=== PATIENT | female | born 1985 | race Caucasian/White ===

== ENCOUNTER → 2021-03-26 | Outpatient (CLI) | payer BC ==
--- NOTE | 2021-03-26 12:01 | MM ---
Reason for exam: clinical finding. Physical Findings: Nurse did not find any significant physical abnormalities on exam. [facility] Diagnostic Mammo w CAD PARTH Bilateral CC and MLO view(s) were taken. The breast tissue is extremely dense which could obscure a lesion on mammography. These results were verbally communicated with the patient and result sheet given to the patient on 03/26/21. ASSESSMENT: Incomplete: need additional imaging evaluation, BI-RAD 0 RECOMMENDATION: Ultrasound of the left breast. (lump)
--- NOTE | 2021-03-26 12:03 | USB ---
Reason for exam: additional evaluation requested from abnormal screening. US Breast Limited LT Left limited breast ultrasound including focal area of concern, retroareolar and axilla demonstrates a 0.8 x 0.5 x 0.2cm oval, cystic lesion at 1 o'clock minimally complex with septation or adjacent, a 0.7 x 0.5 x 0.4cm oval, benign appearing lymph node at the axilla tail and a 1.2 x 1.0 x 0.5cm benign appearing lymph node at the axilla. These results were verbally communicated with the patient and result sheet given to the patient on 03/26/21. ASSESSMENT: Benign, BI-RAD 2 RECOMMENDATION: Routine screening mammogram of both breasts in 1 year. (3D)
== END | disposition home or self-care (01) ==
LOC: RADMAMWWP 06:55
PROVIDERS: ATTEND Internal Medicine
DX: N60.02 Solitary cyst of left breast (principal); R92.2 Inconclusive mammogram
CPT/HCPCS: 77066

== ENCOUNTER → 2024-02-08 | Outpatient (CLI) | payer OTHER ==
--- NOTE | 2024-02-08 11:00 | XR ---
EXAMINATION TYPE: XR thoracic spine complete DATE OF EXAM: 02/08/2024 COMPARISON: None HISTORY: Thoracic pain TECHNIQUE: Three-view thoracic spine FINDINGS: There are 12 thoracic type vertebral bodies. Pedicles are intact. Very subtle scoliosis may be present. This can be related to patient positioning or muscle spasm. Vertebral body heights are p reserved. Disc heights are preserved. Alignment is otherwise unremarkable. IMPRESSION: 1. No acute osseous abnormality thoracic spine. 2. Minimal scoliosis which can be positional or related to muscle spasm
--- NOTE | 2024-02-08 11:01 | XR ---
EXAMINATION TYPE: XR shoulder complete LT DATE OF EXAM: 02/08/2024 COMPARISON: NONE HISTORY: Pain TECHNIQUE: Left Shoulder examined in 3 projections. FINDINGS: The humeral head articulates with the glenoid. The acromio-clavicular junction is normal. No acute fractures or dislocations are evident. A follow up study can be performed 7-10 days from acute trauma for continued pain. MRI can be perfor med if soft tissue evaluation would be of benefit. IMPRESSION: 1. No acute osseous left shoulder abnormality.
--- NOTE | 2024-02-08 11:02 | XR ---
EXAMINATION TYPE: XR cervical spine comp DATE OF EXAM: 02/08/2024 COMPARISON: None HISTORY: Pain lifting injury TECHNIQUE: Five-view cervical spine FINDINGS: Alignment is preserved. Prevertebral space is normal. Disc heights are preserved. Vertebral body heights are preserved. Foramen are patent. Posterior spinal lamellar line is intact. There is s ome limitation due to overlying incisors at the tip of the odontoid. IMPRESSION: 1. No acute osseous abnormality cervical spine
== END | disposition home or self-care (01) ==
LOC: RADXRMAIN 09:57
PROVIDERS: ATTEND Emergency Medicine
DX: S46.912A Strain of unspecified muscle, fascia and tendon at shoulder and upper arm level, left arm, initial encounter (principal); M41.84 Other forms of scoliosis, thoracic region; R20.9 Unspecified disturbances of skin sensation; X58.XXXA Exposure to other specified factors, initial encounter
CPT/HCPCS: 72050; 72072

== ENCOUNTER → 2024-02-19 | Outpatient (CLI) | payer OTHER ==
--- NOTE | 2024-02-19 22:13 | MR ---
EXAMINATION TYPE: MR shoulder LT wo con DATE OF EXAM: 02/19/2024 COMPARISON: Left shoulder x-ray February 08, 2024 HISTORY: Left shoulder pain since 02-06-2024 work injury. TECHNIQUE: Multiplanar, multisequence imaging of the left shoulder is performed without contrast. FINDINGS: Rotator Cuff: Intact infraspinatus tendon. Some increased signal in the supraspinatus tendon. Subscap ularis tendon intact. Rotator cuff muscle bulk is preserved. Acromioclavicular Joint: No significant spurring or narrowing. Glenohumeral Joint: Small joint effusion. No significant spurring. Labrum: The labrum appears grossly intact given limitation of non-arthrogram study. Biceps Tendon: The long head of biceps is in normal location within bicipital groove. Bone marrow signal: No focal abnormal marrow signal is appreciated. Other: No additional significant abnormality is appreciated. IMPRESSION: Mild tendinosis of the distal supraspinatus tendon. No significant rotator cuff or labral tear is seen.
== END | disposition home or self-care (01) ==
LOC: RADMRIMAIN 18:28
PROVIDERS: ATTEND Emergency Medicine
DX: S46.912D Strain of unspecified muscle, fascia and tendon at shoulder and upper arm level, left arm, subsequent encounter (principal); M67.814 Other specified disorders of tendon, left shoulder; M54.6 Pain in thoracic spine; R20.9 Unspecified disturbances of skin sensation

== ENCOUNTER → 2024-04-04 | Outpatient (CLI) | payer OTHER ==
--- NOTE | 2024-04-09 14:06 | MR ---
EXAMINATION TYPE: MR cervical spine wo con DATE OF EXAM: 04/04/2024 1:58 PM COMPARISON: NONE HISTORY: Headache, insomnia, dizziness, tingling into both arms, work injury 02-06-2024 Multiplanar MultiSpin echo imaging of the cervical spine was performed. Comparison: none C2-C3: No evidence for degenerative disc disease. No disc bulge/herniation or protrusion. No Canal stenosis. Foramina are patent bilaterally. C3-C4: No evidence for degenerative disc disease. No disc bulge/herniation or protrusion. No Canal stenosis. Foramina are patent bilaterally. C4-C5: Mild disc desiccation. Posterior central disc bulge with mild effacement noted of the ventral thecal sac. No evidence of herniation or central stenosis. Visualized neural foramina are patent bila terally. C5-C6: Mild disc desiccation. Right paracentral disc bulge with effacement of ventral thecal sac and right foraminal encroachment. Borderline central stenosis. Left neural foramen is patent. C6-C7: Mild disc desiccation. Posterior disc bulge with effacement of ventral thecal sac. Borderline to mild central stenosis. Left greater than right neural foraminal encroachment. C7-T1: No evidence for degenerative disc disease. No disc bulge/herniation or protrusion. No Canal stenosis. Foramina are patent bilaterally. Cervical segments are intact. There is normal alignment. Cervical spinal cord is of normal signal. Craniovertebral junction relationships are within normal limits. IMPRESSION: 1. Multilevel degenerative disc disease and disc bulging as outlined above. Borderline to Mild centra l stenosis as discussed.
== END | disposition home or self-care (01) ==
LOC: RADMRIMAIN 12:59
PROVIDERS: ATTEND Orthopaedic Surgery
DX: M50.30 Other cervical disc degeneration, unspecified cervical region (principal); M48.02 Spinal stenosis, cervical region
CPT/HCPCS: 72141

== ENCOUNTER 2024-05-27 14:00 | Emergency (ER) | payer BC, OTHER ==
[2024-05-27] MEDS ORDERED: KETOROLAC 15 MG/ML 1 ML VIAL ONE (15:40)
[2024-05-27] MEDS ORDERED: ORPHENADRINE 30 MG/ML 2 ML VIAL ONE (15:43)
[2024-05-27] MEDS ORDERED: ACET/COD 300 MG/30 MG STARTER PACK 6 TAB BTL PO ONE (16:08)
== END 2024-05-27 16:12 | disposition home or self-care (01) ==
LOC: EC 14:00
DX: M54.12 Radiculopathy, cervical region (principal); G89.29 Other chronic pain
CPT/HCPCS: 99283; 96372; J2360; J1885

== ENCOUNTER → 2024-05-30 | Outpatient (CLI) | payer BC, OTHER | LOC: PNWHC3 12:30 | PROVIDERS: ATTEND Specialist | DX: M47.812 Spondylosis without myelopathy or radiculopathy, cervical region | CPT/HCPCS: 99211 ==

== ENCOUNTER 2024-07-02 11:41 | Day surgery (SDC) | payer BC, OTHER ==
[2024-06-27 14:51] VITALS: BMI 19.8
[2024-07-02] MEDS ORDERED: LACTATED RINGERS 1,000 ML IV SCH (11:55)
[2024-07-02 12:13] VITALS: RESP 16; TEMP 98
[2024-07-02 12:19] LABS: Glucose,Whole Blood 129 mg/dL (70-110)
[2024-07-02] MEDS ORDERED: ROPIVACAINE 5MG/ML 20ML VIAL ONE (12:51)
[2024-07-02] MEDS ORDERED: IOPAMIDOL M300 15ML VIAL ONE (12:51)
[2024-07-02] MEDS ORDERED: DEXAMETHASONE SOD PHOSPHATE 10 MG/ML 1 ML VIAL ONE (12:51)
[2024-07-02 13:27] VITALS: BP 125/80; PULSE 106
--- NOTE | 2024-07-02 13:29 | P.PCN ---
Description of Procedure: PROCEDURE 1. Injection of radio contrast material into cervical epidural space, cervical epidurogram, interpretation of cervical epidurogram, Cervical epidural steroid injection under fluoroscopic guidance, C5-6 (fluoroscopy images available in the radiology department ) 2. Cervical epidurogram. PREOPERATIVE DIAGNOSIS: 1- Cervical Degenerative Disc Diseases 2- Cervical radiculopathy., 3-cervical spondylosis with cervical Facet arthropathy without myelopathy.4-cervical spinal stenosis POSTOPERATIVE DIAGNOSIS: : 1- Cervical Degenerative Disc Diseases , 2- Cervical radiculopathy. 3-,cervical spondylosis with cervical Facet arthropathy without myelopathy. 4-cervical spinal stenosis ANESTHESIA: Local anesthetics infiltration. In the OR continuous pulse ox, EKG, blood pressure and verbal communication was maintained. EBL : None PROCEDURE INDICATION: The patient with neck pain and radiculitis unresponsive to conservative treatment consents for procedure. Discussed the procedure, alternatives and possible complications which may include increased pain, infection, bleeding, nerve damage, paralysis all of which could be permanent. Patient understands and all questions were answered. PROCEDURE DESCRIPTION : After getting consent patient was taken to the OR , positioned in prone position and time out was completed. A pillow was placed under the patients chest to increase the cervical interlaminar space. The cervical area was prepped and draped in the usual sterile fashion. Using anterior-posterior fluoroscopy, interlaminar space was identified and the skin over this site was marked and then infiltrated with 1% lidocaine 12 ml subcutaneously. Subsequently, a 20- gauge 3-1/2-inch Tuohy epidural needle was inserted and advanced toward the epidural space with the loss of resistance technique using a syringe filled with preservative-free normal saline and guided by AP and lateral fluoroscopy. N egative CSF, negative blood, negative paresthesia. The correct needle position in the epidural space was verified with the injection of 2 mL of the water soluble contrast dye [id number]-200 and observing an excellent epidurogram with the epidural spread of the dye, after repeat negative aspiration 3 mL solution was injected which consists of 1 mL of preservative-free normal saline mixed with 2 mL of 20 mg dexamethasone and a washout of epidurogram was seen. Needle was withdrawn intact, skin was cleansed, and bandages were applied. Disposition: Patient tolerated the procedure well. No complication. Patient was placed in supine position and transferred to the recovery room area in stable condition and there was no evidence of upper or lower extremity motor or sensory deficit after the procedure patient was discharged from recovery room after discharge criteria met and home discharge instructions was given by the staff and patient will follow with the pain clinic in 2-4 weeks. Pt was extremely emotional in pre, intra and post operative area. Was uncomfortable during the entire procedure in spite of more than usual infiltration of local anesthetics and consolation by the nurses. It may not be prudent for pt going through the process of pain procedures.
--- NOTE | 2024-07-25 10:36 | FL ---
EXAMINATION TYPE: FL guided pain mgmt statistic DATE OF EXAM: 07/02/2024 1:11 PM COMPARISON: Pre Operative Images if available both CT/MRI or plain film CLINICAL INDICATION: Female, 38 years old with history of CERVICAL EPI; TECHNIQUE: FL guided pain mgmt statistic, multiple fluoroscopic images provided for procedure. Total fluoroscopy time: 5.2 seconds Total submitted images to PACS: 2 DAP: [id number] mGym2 Gycm2 uGym2 cGycm2 or equivalent. FINDINGS: Fluoroscopic images during injection for pain management demonstrate multilevel degeneration changes throughout the spine. No evidence for fracture. No acute process identified. IMPRESSION: 1. No evidence for intraoperative complication. 2. Please see the operative/procedural note for further details. [facility], , 07/25/2024 10:33 AM
== END 2024-07-02 13:47 | disposition home or self-care (01) ==
LOC: ORPAIN 11:41
PROVIDERS: ATTEND Pain Medicine Interventional Pain Medicine
DX: M47.22 Other spondylosis with radiculopathy, cervical region (principal); M48.02 Spinal stenosis, cervical region; M50.123 Cervical disc disorder at C6-C7 level with radiculopathy
CPT/HCPCS: 62321; 81025

== ENCOUNTER → 2024-07-10 | Outpatient (CLI) | payer OTHER ==
[2024-07-10 13:14] VITALS: BP 108/74; RESP 16; TEMP 96.6
--- NOTE | 2024-07-10 14:45 | P.PAINPG ---
PQRS Measure Charge Sheet Comment: A 38 yr old female with a history of severe and chronic neck pain secondary to radiculopathy, spondylosis and facet arthropathy without myelopathy presents today for evaluation s/p HUDSON C5-C6 #1. Pt states she experienced 0% s/p procedure. Pain level is provoked at 7 /10 in intensity, constant, predominantly axial, localized in the cervical spine, sharp in character w occasional shooting towards the UEs. Pain is provoked by head movement. Pain is alleviated with PT x 2 wks in February 2024 which was ineffective, heat, ice, medications, topical, repositioning and rest. Interventional pain procedures completed include HUDSON C5-C6 x1 Patient is currently on Tyl, Flexeril, [place] Patient denies any side effects of the medication(s), denies excessive drowsiness or sleepiness, denies suicidal ideation and reports that the current pain medication is helping to control the pain and improve activities of daily living. Patient denies any motor or sensory deficits. Patient denies any fever or night sweats, denies any change in the bowel movements or urination. Physical Examination: -Constitutional: Cooperative. Not in acute distress . - Neurologic: Cranial nerve II to XII intact. No focal neurological deficits. - Psychatric: Alert & oriented x 3. Matching mood & appropriate affect. Judgment and insight intact. - Musculoskeletal: Cervical spine: Muscle bulk/ tone/ strength in the bilateral upper extremities normal Vertebral body tenderness to palpation over C6 Spurling test positive BL C5-C6 Distraction test positive Facet loading test positive TTP Thoracic spine Muscle bulk / tone/ strength in the bilateral paraspinal muscles normal Vertebral body tender to palpation over Facet loading test positive TTP Lumbar spine: Motor bulk/ tone/ strength lower extremities , thigh and legs : 5/5 Deep tendon reflexes : Normal Knee Jerk. Normal Ankle Jerk . Vertebral body tenderness to palpation over Lumbar Facet Loading Test positive Straight Leg Raise: positive at 30 degrees right side/ left side Gaenslen's Test positive Sacral spine : Severe tenderness over the Sacroiliac joint: right side / left side Range of motion: Flexion of the lumbar spine <60 degrees Range of motion: Extension of the lumbar spine <20 degrees Gaenslen's Test positive R / L Geovanni test: positive right side / left side Thigh Thrust Test positive R / L Sacral Thrust Test positive R/ L Assessment and plan: Chronic neck pain secondary to cervical radiculopathy, spondylosis with facet arthropathy without myelopathy Recommendation of follow up w Dr Srinivasan to explore additional treatment options. All questions answered. Chronic and current use of high-risk medication (Opioids). The patient was counseled about risk of opioid use, psychological risk associated with opioids and was orally counseled to not overuse , divert or sell medications. Pt is to store medication in a safe location. The patient is counseled against driving while using narcotic medications and also not to use alcohol or any illicit recreational drugs. Patient verbalized understanding that the lack of compliance will result in failure to renew narcotic prescription(s) as well as possible discharge from the clinic Diagnoses, prognosis and treatment options including but not limited to physical therapy, surgical interventions, interventional therapies and medication management including narcotics and adjuvant medication were discussed. All patient questions answered MAPS reviewed and it was appropriate. Prescription refill for Kenneth 7.5/325mg #18 NR Use, side effects, adverse reactions, safe storage discussed. I have spent less than 30 minutes on patient care today. Dr Loving was available by phone for the evaluation of this patient. The time was used to review the medical records including relevant urine studies and Prescription history (MAPs), review of the available imaging, evaluation and examination of the patient, coordination of care with the medical staff and if applicable referring physicians, as well as creation of the medical record - Pain Location Bilateral Lower Neck Non-Pharmacological Interventions: Heat, Ice, Inactivity, Physical Therapy, Position/Reposition, Sitting Pharmacological Interventions: Epidural, PRN Medication, Scheduled Medication, Topical Medication Home Medications: Ambulatory Orders ALPRAZolam [Xanax] 1 mg PO BID 06/27/24 Acetaminophen [Tylenol Extra Strength] 1,000 mg PO Q8HR PRN 06/27/24 Cyclobenzaprine [Flexeril] 10 mg PO TID PRN 06/27/24 Dextroamphetamine/Amphetamine [Adderall] 20 mg PO BID 07/02/24 HYDROcodone/APAP 7.5-325MG [Kenneth 7.5-325] 1 tab PO Q4H PRN 3 Days #18 tab 07/10/24 Controlled Substance Measures - Controlled Substance Measures Is patient prescribed a controlled substance at discharge?: Yes When asked, does pt state using other controlled substances?: Yes If prescribed controlled substance>3 days was MAPS reviewed?: Prescribed <3 Days
== END ==
LOC: PNWHC3 12:50
PROVIDERS: ATTEND Specialist
DX: M54.12 Radiculopathy, cervical region
CPT/HCPCS: 99211

== ENCOUNTER → 2025-02-28 | Outpatient (CLI) | payer OTHER ==
[2025-02-28 19:25] LABS: ALT 16 U/L (8-44); AST 24 U/L (13-35); Albumin 4.3 g/dL (3.8-4.9); Albumin/Globulin Ratio 1.72 Ratio (1.60-3.17); Alkaline Phosphatase 93 U/L (41-126); Blood Urea Nitrogen 7.7 mg/dL (9.0-27.0); Calcium 9.1 mg/dL (8.7-10.3); Carbon Dioxide 19.6 mmol/L (21.6-31.8); Chloride 106 mmol/L (96-109); Globulin 2.5 g/dL (1.6-3.3); Glucose 84 mg/dL (70-110); Potassium 5.5 mmol/L (3.5-5.5); Sodium 138 mmol/L (135-145); Total Bilirubin <0.2 mg/dL (0.3-1.2); Total Protein 6.8 g/dL (6.2-8.2)
[2025-02-28 19:45] LABS: Basophils # (A) 0.06 X 10*3/uL (0.00-0.10); Basophils % (A) 0.7 %; Eosinophils # (A) 0.15 X 10*3/uL (0.04-0.35); Eosinophils % (A) 1.6 %; HCT 43.4 % (37.2-46.3); Lymphocytes # (A) 3.47 X 10*3/uL (0.90-5.00); Lymphocytes % (A) 37.6 %; MCH 31.9 pg (27.0-32.0); MCHC 32.3 g/dL (32.0-37.0); MCV 98.9 FL (80.0-97.0); Mean Platelet Volume 11.2 FL (9.5-12.2); Monocytes # (A) 0.78 X 10*3/uL (0.20-1.00); Monocytes % (A) 8.5 %; NRBC Per 100 WBC 0 X 10*3/uL (0.00-0.01); Neutrophils # (A) 4.74 X 10*3/uL (1.80-7.70); Neutrophils % (A) 51.4 %; Platelet Count 217 X 10*3/uL (140-440); RBC 4.39 X 10*6/uL (4.10-5.20); RDW 13.2 % (11.5-14.5); WBC 9.22 X 10*3/uL (4.50-10.00)
== END | disposition home or self-care (01) ==
LOC: LABWHC1 14:10
PROVIDERS: ATTEND Nurse Practitioner Family
DX: B18.2 Chronic viral hepatitis C (principal)
CPT/HCPCS: 36415; 80053; 85025

== ENCOUNTER → 2025-03-04 | Outpatient (CLI) | payer OTHER | END | disposition home or self-care (01) | LOC: LABWHC1 15:19 | PROVIDERS: ATTEND Nurse Practitioner Family | DX: B18.2 Chronic viral hepatitis C (principal) | CPT/HCPCS: 36415; 87522 ==

== ENCOUNTER → 2025-03-27 | Outpatient (CLI) | payer OTHER | END | disposition home or self-care (01) | LOC: LABPAT 13:50 | PROVIDERS: ATTEND Orthopaedic Surgery | DX: Z01.812 Encounter for preprocedural laboratory examination (principal); M50.20 Other cervical disc displacement, unspecified cervical region | CPT/HCPCS: 86850; 86900; 86901 ==

== ENCOUNTER → 2025-03-28 | Day surgery (SDC) | payer OTHER ==
[~2025-03-28] MED LIST: ACETAMINOPHEN TAB 500 MG TAB PO PRN; GABAPENTIN 300 MG CAP PO PRN; HYDROmorphone 0.5 MG/0.5 ML SYRINGE IVP PRN; LACTATED RINGERS 1,000 ML IV SCH; MIDAZOLAM 2 MG/2 ML VIAL IV PRN; ONDANSETRON 4 MG/2 ML VIAL IVP PRN; TRANEXAMIC 1,000 MG/100ML-NACL 1,000 MG in SALINE 1 100ML.BAG IVPB PRN; ceFAZolin 2 GM in DEXTROSE 5% IN WATER 50 ML IVPB PRN
--- NOTE | 2025-03-28 09:08 | P.HPOR ---
History of Present Illness H&P Date: 03/26/25 .D:Date: 03/26/25 : 02:30pm .T:Title: PRE OP CERVICAL FUSION Clinical Summary Louisa Espino presents with a history of herniated disc in the neck, experiencing significant pain (VAS 8/10) and neurological symptoms including numbness in the fingers, particularly on the left side. She reports cold-like symptoms, including chills, body aches, and lack of appetite, with a low-grade fever of 99.2F. Despite these symptoms, a cervical spine surgery is scheduled for Monday. Louisa has a weak immune system and recently recovered from hepatitis C. Current vital signs show BP 120/70, HR 82, O2 sat 99%, and BMI 20. The treatment plan includes proceeding with the scheduled surgery, pending COVID-19 test results and pre-operative assessment. Post-operative care will involve early mobilization, pain management, and gradual return to activities with specific restrictions on driving and use of a collar. Surgical Plan: C4-7 ANTERIOR CERVICAL DISCECOMTY AND FUSION Chief Complaint Neck pain with associated neurological symptoms, specifically numbness in the fingers, more pronounced on the left side. SPINE SURGERY CLINICAL AND RISK REVIEW Louisa Espino is a 39 YO FEMALE presenting for evaluation of neck pain with associated neurological symptoms. It was my pleasure to have seen and examined Louisa Espino. In our visit today we have had a chance to go over subjective complaints, physical examination findings and treatments including the natural course history without intervention and various interventional options. The patient's imaging demonstrates the following findings: - Herniated disc in the neck (specific level not provided) - Additional imaging findings not provided - Further details of imaging not available On a physical exam, Louisa Espino demonstrates the following findings: - Numbness in fingers, more pronounced on the left side - Difficulty closing the right hand due to swelling - Additional physical exam findings not provided I have explained to Louisa that as their condition progresses it will cause further neurological deficits and eventual paralysis. Based on the patient's imaging, physical exam, and the rapid progression and disabling nature of their symptoms, at this time I recommend surgery in the form of a: Cervical spine procedure (specific procedure not provided). I discussed the risk and benefits of this procedure at length with Louisa Espino. Louisa has agreed to consider pursuing the procedure above mentioned. Prior to surgery, they should follow up with her PCP for clearance. Questions were invited and answered, and Louisa wishes to proceed as outlined below. Recommendations 1. Proceed with the scheduled cervical spine surgery on Monday, pending COVID-19 test results and pre-operative assessment. 2. Administer COVID-19 test to rule out active infection. 3. Provide pre-operative clearance, considering Louisa's recent recovery from hepatitis C and reported weak immune system. 4. Perform the cervical spine procedure (specific details not provided) under general anesthesia. 5. Aim for same-day discharge if Louisa's condition allows; otherwise, prepare for potential overnight stay. 6. Prescribe appropriate pain medication for post-operative pain management. 7. Instruct Louisa to wear a collar for the first 2 weeks post-surgery, then begin weaning for the next 2 weeks. 8. Advise Louisa to start with 10-minute walks on the day of surgery, gradually increasing to 3-4 walks per day. 9. Allow showering 2 days after surgery. 10. Prohibit driving for at least 2 weeks post-surgery, with potential extension to 4 weeks based on recovery progress. 11. Recommend sleeping in a recliner for the first 3 days if more comfortable, then transition to bed as tolerated. 12. Administer prophylactic antibiotics to prevent post-operative infections. 13. Schedule follow-up appointments to monitor recovery and adjust treatment plan as needed. Risks All surgical procedures come with inherent risks, including those related to positioning, anesthesia, intraoperative findings, and postoperative complications. It is important to understand that surgery does not come with any guarantee of a successful outcome as complications and adverse events are always possible. Louisa was given a handout in the office today discussing the surgical procedure and risks associated with the intervention, both of which were discussed with Louisa. These risks include but are not limited to the following: - Experiencing same, different or even worse symptoms in back, neck, arms, or legs compared to before surgery. - Requiring further surgery or other forms of treatment presently or at some time in the future at same or other levels of the intended spine surgery. - On an extreme but fortunately relatively rare basis severe complications such as blindness, stroke, heart attack, temporary and/or permanent nerve injury, paralysis, coma, or may occur, sometimes without known explanation. - Surgical complications may include but are not limited to risk of infection, fluid accumulation in the surgical dissection site, including a seroma or hematoma, that requires additional surgery, wound drainage, bleeding, new numbness or weakness, vision changes/loss, spinal fluid leakage, non-healing and/or infected incision, headaches, difficulty or inability to swallow, hoarseness, hemopneumothorax, pneumothorax, impotence, retrograde ejaculation, vaginal dryness; injury to nerves, spinal cord, blood vessels, lymphatics or other vital organs (i.e., bowel injury, injury to the great vessels); heterotopic bone formation; complications related to the hardware such as screws, rods, cages including misplaced hardware, device failure, instrumentation at the wrong spine level, hardware fracture/breakage, or hardwar e loosening; vertebral failure of the spinal column above or below the newly placed hardware; retained surgical instrumentations or devices and the need for further surgery. - Medical risks of the planned spine surgery include but are not limited to generalized Infections to the whole body or local areas outside of the surgical site (sepsis), heart attack, bleeding, anaphylaxis, meningitis, seizure, epilepsy, hearing loss, burn cornelius, laceration of the head or other areas of the body, bruising, hypersensitivity of the skin, bladder over distension; allergic reaction; shoulder injury related to positioning; fat, blood and air clots to other areas of the body like heart, lungs, brain; failure of internal organs such as lungs, kidneys, liver and excessive bleeding. If blood transfusions are necessary, note that transfusions may cause intolerance reactions such as anaphylaxis or other complex reactions. - Despite best efforts, the results of spine surgery might not heal in terms of bone, soft tissues such as skin, fascia, ligaments, and joints. Additionally, in order to achieve best possible results, spine surgery may be carried out beyond the initially planned levels and involve decompression, fusion including insertion of hardware at levels other than the original intended area of surgical interest change some portions of the procedure in order to ensure the best possible outcomes. - With spine surgery and spinal fusion, there are different off label uses of instrumentation (devices, implants and hardware) as well as biological substances (bone morphogenic proteins, demineralized bone matrix) as well as using extra bone from allograft sources (i.e. cadaver bone) or autograft (iliac crest bone, ribs, or the spine itself). Louisa has been given information about these practices and their inherent risks and benefits. Louisa has had a chance to review all the listed information, has been given print outs detailing this information, and has had all her questions answered to her satisfaction. It was my pleasure to have seen and examined Louisa Espino. In our visit today we have had a chance to go over my understanding of Louisa's current condition, the natural course history without intervention and various interventional options. Questions were invited and answered, and Louisa wishes to proceed as outlined above. I have seen and examined Louisa for 25 minutes and we have spent more than 50% of the time in repeat and detailed counseling about Louisa's condition, its natural course history without and as much as can be predicted with surgery and re-review of various surgical treatment options. In conclusion, Louisa Espino and her family requested we proceed with the above suggested surgery and are willing to accept risks and limitations of the suggested surgery as the nature of the disease process and our best attempts at treatment for the condition. Attestation In our visit today Louisa and I have had a chance to go over my understanding of her current condition, the natural course history without intervention and various interventional options. Questions were invited and answered, and Louisa wishes to proceed as outlined above. I will be sure to keep you updated after Louisa returns here for further follow- up. Thank you again for your referral. Please do not hesitate to contact me if you have any further questions. Signed and authenticated by: DO Lea Bethea [facility] [address] [place] [id number] This document is confidential, intended only for the named recipient(s) and may contain information that is privileged or exempt from disclosure under [employer] law. If you are not the intended recipient(s), you are notified that the dissemination, distribution or copying of this information is strictly prohibited. If you received this message in error, please notify the sender then delete this message. # SIGNED BY Lorne Srinivasan (GOO)03/26/2025 03:11PM Past Medical History Past Medical History: No Reported History History of Any Multi-Drug Resistant Organisms: MRSA Date of last positivie culture/infection: 2021 MDRO Source:: LT UPPER THIGH Past Surgical History: Section, Tonsillectomy Past Anesthesia/Blood Transfusion Reactions: No Reported Reaction Smoking Status: Current every day smoker - Past Family History Father Family Medical History: Cancer Medications and Allergies Home Medications Medication Instructions Recorded Confirmed Type ALPRAZolam [Xanax] 1 mg PO BID 06/27/24 07/10/24 History Acetaminophen [Tylenol Extra 1,000 mg PO Q8HR PRN 06/27/24 07/10/24 History Strength] Cyclobenzaprine [Flexeril] 10 mg PO TID PRN 06/27/24 07/10/24 History Dextroamphetamine/Amphetamine 20 mg PO BID 07/02/24 07/10/24 History [Adderall] HYDROcodone/APAP 7.5-325MG [[place] 1 tab PO Q4H PRN 3 Days #18 tab 07/10/24 Rx 7.5-325] Allergies Allergy/AdvReac Type Severity Reaction Status Date / Time latex Allergy Swelling, Verified 07/10/24 13:06 REDNESS lurasidone [From Latuda] Allergy Anaphylaxis Verified 07/10/24 13:06 Physical Examination Osteopathic Statement: *. No significant issues noted on an osteopathic structural exam other than those noted in the History and Physical/Consult.
== END ==
LOC: OR 10:41
PROVIDERS: ATTEND Orthopaedic Surgery
DX: M50.20 Other cervical disc displacement, unspecified cervical region (principal); Z53.9 Procedure and treatment not carried out, unspecified reason; F17.200 Nicotine dependence, unspecified, uncomplicated; Z91.040 Latex allergy status; R29.818 Other symptoms and signs involving the nervous system; R20.0 Anesthesia of skin; R68.83 Chills (without fever); R63.0 Anorexia